=== PATIENT | male | born 1960 | race Caucasian/White ===

== ENCOUNTER → 2019-06-29 12:49 | Outpatient (CLI) | payer OTHER, MEDICAID, SELFPAY ==
--- NOTE | 2019-06-29 15:08 | DI.RAD.S_ITS ---
PROCEDURE: XR SHOULDER LT MIN 2V INDICATIONS: Injury to Left rotator cuff TECHNIQUE: 3 views of the shoulder were acquired. COMPARISON: None. FINDINGS: Bones: No fractures or dislocations. No suspicious bony lesions. Visualized ribs appear intact. Acromioclavicular and glenohumeral degenerative spurring and sclerosis. Soft tissues: No suspicious soft tissue calcifications. IMPRESSION: No fracture. If the patient's pain or other symptoms persist, consider further evaluation with MRI Dictated by: Miguel Portillo M.D. on 06/29/2019 at 16:04 Approved by: Miguel Portillo M.D. on 06/29/2019 at 16:06
== END ==
PROVIDERS: PCP Family Medicine; Visit Provider Family Medicine
DX: S46.002A Unspecified injury of muscle(s) and tendon(s) of the rotator cuff of left shoulder, initial encounter (principal); X58.XXXA Exposure to other specified factors, initial encounter
CPT/HCPCS: 73030

== ENCOUNTER → 2019-07-04 08:34 | Outpatient (CLI) | payer OTHER, MEDICAID, SELFPAY ==
--- NOTE | 2019-07-04 08:39 | DI.MRI.S_ITS ---
PROCEDURE: MR SHOULDER LT WO CON INDICATIONS: Injury of L rotator cuff TECHNIQUE: Noncontrast oblique coronal T2 fast spin echo with fat saturation, oblique sagittal T1 spin echo and T2 fast spin echo with fat saturation, axial T1 spin echo and T2 fast spin echo with fat saturation through the shoulder. COMPARISON: None. FINDINGS: Image quality: Excellent. Rotator cuff: The supraspinatus, infraspinatus , and subscapularis tendons appear intact throughout. Sagittal images demonstrate no muscle atrophy. Bones and bursae: No bone marrow contusions or fractures. 7 mm diameter high T2 intensity focus within the humeral head is present which demonstrates small internal low T2 intensity foci. There is moderate acromioclavicular joint degeneration. The acromion demonstrates conventional anatomy, without an os acromiale. No pathologic subacromial-subdeltoid or subcoracoid bursal fluid is present. Capsule and soft tissues: There is undercutting of the posterior superior glenoid labrum. The long head of the biceps tendon demonstrates normal location and morphology. The rotator interval appears normal, without fibrosis. The coracohumeral ligament is normal in thickness. IMPRESSION: 1. No rotator cuff tear. 2. Acromioclavicular joint osteoarthritis. 3. Glenoid labral tearing. 4. Low-grade cartilaginous lesion within the humeral head. Dictated by: Carmina Ordoñez M.D. on 07/06/2019 at 15:06 Approved by: Carmina Ordoñez M.D. on 07/06/2019 at 15:45
== END ==
PROVIDERS: PCP Family Medicine; Visit Provider Family Medicine
DX: S46.002A Unspecified injury of muscle(s) and tendon(s) of the rotator cuff of left shoulder, initial encounter (principal); S43.432A Superior glenoid labrum lesion of left shoulder, initial encounter; M19.012 Primary osteoarthritis, left shoulder; X58.XXXA Exposure to other specified factors, initial encounter
CPT/HCPCS: 73221

== ENCOUNTER 2023-03-27 16:10 | Emergency (ER) | payer OTHER, MEDICAID, SELFPAY ==
[2023-03-27 16:20] VITALS: BP 157/86; PULSE 80; RESP 16; TEMP 36.7; O2SAT 96; BMI 30.4
--- NOTE | 2023-03-27 16:36 | DI.CT.S_ITS ---
PROCEDURE: CT CHEST ABD PEL W CON INDICATIONS: trauma TECHNIQUE: After the administration of intravenous contrast, 5 mm thick sections acquired from the lung apices to the symphysis. 5 mm coronal and sagittal reformats were performed, with additional 7 mm MIP reformats through the lungs. For radiation dose reduction, the following was used: automated exposure control, adjustment of mA and/or kV according to patient size. COMPARISON: [facility], CT, ABDOMEN/PELVIS WITH CONTRAST, 02/08/2017, 8:29. FINDINGS: Image quality: Good Lungs and pleura: No pulmonary laceration or contusion identified. No hemothorax or pneumothorax. No significant airspace disease. Basal atelectasis. Tiny micro nodules/granulomas are present. Mediastinum, heart, and esophagus: No hiatal hernia. Heart size is within normal limits. No aortic abnormality on this non arteriographic study. No mediastinal hematoma. No pathologic lymph nodes by size criteria. Chest wall and thyroid: Thyroid is unremarkable. Chest wall is unremarkable. Solid organs: No evidence of liver laceration. Gallbladder is unremarkable. There is moderate fatty infiltration of the pancreas. No pathologic dilation of the biliary tree or pancreatic duct. No splenomegaly. No adrenal nodules. No hydronephrosis. No capsular hematoma or solid organ laceration. Vessels and lymph nodes: No evidence of abdominal aortic aneurysm or retroperitoneal hematoma. There are atherosclerotic calcifications. Minimal degree of fat stranding is seen surrounding the common iliac vessels of uncertain etiology. No drainable fluid collection. Bowel and peritoneum: No evidence of small bowel obstruction. No hemoperitoneum. No pathologic ascites. Body wall: Tiny umbilical and left inguinal fat containing hernias. Pelvis: Prostate is not well evaluated on CT. Bladder is unremarkable. Prosthetic enhancement is heterogeneous as before. Bones: No acute or suspicious osseous finding. There are degenerative changes. IMPRESSION: No significant traumatic abnormality identified. Other suspected nonacute and incidental findings described above. Dictated by: Jewel Mosley M.D. on 03/27/2023 at 17:17 Approved by: Jewel Mosley M.D. on 03/27/2023 at 17:24
[2023-03-27 17:01] LABS: Add Manual Diff / Slide Review NO; Basophils Absolute Auto 0 /uL (0-100); Basophils Percent Auto 0.3 % (0-2); Eosinophils Absolute Auto 200 /uL (0-450); Eosinophils Percent Auto 2.1 % (2-4); Hematocrit 43.8 % (41-53); Hemoglobin 15.4 g/dL (13.5-17.5); Lymphocytes Absolute Auto 1300 /uL (1100-4500); Lymphocytes Percent Auto 17.1 % (25-40); Mean Corpuscular HGB Conc 35.2 % (30-36); Mean Corpuscular Hemoglobin 31.6 PG (26-34); Mean Corpuscular Volume 89.8 fL (80-100); Monocytes Absolute Auto 600 /uL (0-900); Monocytes Percent Auto 7.5 % (3-14); Neutrophils Absolute Auto 5700 /uL (1500-7000); Platelet Count 256 X10^3/uL (150-400); Red Blood Cell Count 4.88 X10^6/uL (4.5-5.9); Red Cell Distribution Width 14.2 % (11.6-14.8); White Blood Cell Count 7.8 X10^3/uL (4.5-11.0)
[2023-03-27 17:16] LABS: Alanine Aminotransferase 24 IU/L (<50); Albumin 4.7 g/dL (3.5-5.0); Albumin Globulin Ratio 1.2 (1.0-2.8); Alkaline Phosphatase 64 U/L (38-126); Aspartate Aminotransferase 25 IU/L (17-59); BUN Creatinine Ratio 9.5 (6-22); Bilirubin Total 0.5 mg/dL (0.2-1.3); Blood Urea Nitrogen 12 mg/dL (9-20); Calcium 9.5 mg/dL (8.4-10.2); Carbon Dioxide 21 mmol/L (22-32); Chloride 108 mmol/L (98-107); Estimated Glomerular Filt Rate > 60 mL/min (>60); Globulin 3.9 g/dL (1.7-4.1); Glucose 109 mg/dL (80-110); HEMOLYSIS < 15 (0-50); Lipase 45 U/L (23-300); Potassium 3.7 mmol/L (3.4-5.1); Sodium 142 mmol/L (137-145); Total Protein 8.6 g/dL (6.3-8.2)
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
[2023-03-27 18:01] VITALS: BP 140/97; PULSE 70; RESP 16; O2SAT 99
== END 2023-03-27 18:10 | disposition home or self-care (01) ==
PROVIDERS: Nurse Practitioner Critical Care Medicine; Emergency Provider Emergency Medicine; PCP Family Medicine
DX: S30.1XXA Contusion of abdominal wall, initial encounter (principal); V89.2XXA Person injured in unspecified motor-vehicle accident, traffic, initial encounter
CPT/HCPCS: 36415; 71260; 74177; 80053; 83690; 85025; 99284; Q9967

== ENCOUNTER → 2023-12-18 11:59 | Outpatient (CLI) | payer OTHER, MEDICAID, SELFPAY ==
[2023-12-18 12:57] LABS: Hematocrit 44.2 % (41-53); Hemoglobin 15.4 g/dL (13.5-17.5); Mean Corpuscular HGB Conc 34.9 % (30-36); Mean Corpuscular Hemoglobin 32.1 PG (26-34); Mean Corpuscular Volume 91.9 fL (80-100); Platelet Count 255 X10^3/uL (150-400); Red Blood Cell Count 4.81 X10^6/uL (4.5-5.9); Red Cell Distribution Width 14.6 % (11.6-14.8)
[2023-12-18 14:23] LABS: Hemoglobin A1C% w Est Avg Glu 5.4 % (4.0-6.0)
[2023-12-18 16:09] LABS: Alanine Aminotransferase 13 IU/L (<50); Albumin 4.2 g/dL (3.5-5.0); Albumin Globulin Ratio 1.3 (1.0-2.8); Alkaline Phosphatase 60 U/L (38-126); Aspartate Aminotransferase 17 IU/L (17-59); BUN Creatinine Ratio 12.1 (6-22); Bilirubin Total 0.5 mg/dL (0.2-1.3); Blood Urea Nitrogen 14 mg/dL (9-20); Calcium 10.2 mg/dL (8.4-10.2); Carbon Dioxide 27 mmol/L (22-32); Chloride 107 mmol/L (98-107); Cholesterol 232 mg/dL (140-199); Estimated Glomerular Filt Rate > 60 mL/min (>60); Globulin 3.3 g/dL (1.7-4.1); Glucose 84 mg/dL (80-110); HDL Cholesterol 37 mg/dL (40-60); HEMOLYSIS < 15 (0-50); LDL Cholesterol Calculated 143 mg/dL (<100); Sodium 140 mmol/L (137-145); Total Protein 7.5 g/dL (6.3-8.2); Triglycerides 260 mg/dL (35-150)
[2023-12-18 16:20] LABS: Potassium 4.5 mmol/L (3.4-5.1)
== END ==
PROVIDERS: PCP Nurse Practitioner Family; Referring Provider Nurse Practitioner Family; Visit Provider Nurse Practitioner Family
DX: K59.00 Constipation, unspecified (principal); E66.9 Obesity, unspecified
CPT/HCPCS: 36415; 80053; 80061; 83036; 85027

== ENCOUNTER 2024-04-21 07:43 | Day surgery (SDC) | payer OTHER, MEDICAID, SELFPAY ==
[2024-04-21] VITALS (7 sets, daily range): BP systolic 101–121; BP diastolic 72–83; PULSE 69–78; RESP 14–24; TEMP 36.1–36.4; O2SAT 94–99
--- NOTE | 2024-04-21 | PATH_ITS ---
[facility] [place] Accession Number: [id number] No. of containers..03 Tissue . 01 Material submitted: . PART A: colon - CECAL MASS PART B: colon - PROXIMAL DESCENDING COLON POLYP PART C: rectum - RECTAL POLYP AT 20CM X2 . 01 Diagnosis: Part A: CECAL MASS: Tubulovillous adenoma. No high-grade dysplasia or malignancy identified. See comment. . Specimen Comments: The clinical impression of a mass is noted. While no malignancy is seen in the biopsy sample, correlation with the clinical appearance is recommended to ensure that the lesion is removed and to rule out the possibility of an unsampled higher grade lesion. . Part B: PROXIMAL DESCENDING COLON POLYP: Tubular adenoma. . Part C: RECTAL POLYP AT 20CM X2: Tubular adenoma. Hyperplastic polyp. [facility] 04/23/2024 1636 Local . 01 Electronically signed: . Tashi Sun MD, Pathologist NPI- [id number] . 01 Gross description: . A. Received in formalin with two patient identifiers and cecal mass, are multiple briggs soft tissue fragments, the largest two measuring 1.3 x 1.3 x 0.7 cm and 0.9 x 0.8 x 0.5 cm, inked blue and green, serially sectioned, and submitted in A1-A2. The remaining contents of the bottle were filtered and submitted in A3. . B. Received in formalin with two patient identifiers and proximal descending colon polyp, is a single briggs soft tissue fragment, 0.8 cm in greatest dimension. Submitted in B1. . C. Received in formalin with two patient identifiers and rectum polyp at 20 cm, is a briggs to brown soft tissue fragment, 1.0 x 0.8 x 0.6 cm, inked green, serially sectioned, and submitted in C1. ([id number]) /MRV 04/23/2024 1636 Local . 01 Pathologist provided ICD-10: D12.0, D12.4, D12.8 . 01 CPT . 091806, 037960, 271704 Specimen Comment: A courtesy copy of this report has been sent to [phone] Performed at: [address] [address], [place], [place] [id number] MD Tashi Sun MD Phone: [phone]
--- NOTE | 2024-04-21 | DI.RAD.S_ITS ---
PROCEDURE: XR KUB INDICATIONS: abdominal pain post colonoscopy TECHNIQUE: One view of the abdomen acquired. COMPARISON: None. FINDINGS: Surgical changes and devices: None. Bowel: Bowel gas pattern is nonobstructive with moderate amount of gas in the ascending and transvers. Paucity of bowel gas in the left hemiabdomen and pelvis. No radiographic evidence of pneumoperitoneum. Soft tissues: No suspicious abdominal calcifications. Visualized solid organ contours appear normal in size. Bones: No suspicious bony lesions. IMPRESSION: 1. Nonobstructive bowel gas pattern with moderate amount of gas in the ascending and transverse colon. Paucity of bowel gas in the left hemiabdomen and pelvis. 2. No radiographic evidence of pneumoperitoneum. Dictated by: Mathieu Orozco M.D. on 04/21/2024 at 10:15 Approved by: Mathieu Orozco M.D. on 04/21/2024 at 10:17
[2024-04-21] MEDS: LACTATED RINGERS 1,000 ML 42 ML IV (07:53)
--- NOTE | 2024-04-21 08:47 | P.HP_ITS ---
History of Present Illness History of Present Illness Date Patient Seen: 04/21/24 Time Patient Seen: 08:47 Chief complaint: Screening Colonoscopy Narrative: Colon cancer screening. H/o constipation. This is his first scope. ON LICENSE OF [facility] Medical History Measles (~1969) Chicken pox (~1967) Kidney stone (~2015) BMI 31.0-31.9,adult Tear of left glenoid labrum (04/2019) Surgical History Anesthesia History of lithotripsy (~2015) History of oral surgery Status post appendectomy (~1962) Family History Father Cancer Diabetes mellitus Mental health problem Mother History of heart disease Grandfather Hemophilia Grandmother Cancer Mental health problem Social History Smoking Status: Former smoker alcohol intake: never Meds Home Medications and Allergies Allergies Allergy/AdvReac Type Severity Reaction Status Date / Time chocolate flavor Allergy Severe HANDS Verified 04/21/24 07:57 [CHOCOLATE FLAVOR] SWELL, breathing gets bad tetracycline [TETRACYCLINE] Allergy Intermediate SWELLING Verified 04/21/24 07:57 cat dander Allergy Mild eyes Verified 04/21/24 07:57 water, nose drainage Review of Systems Review of Systems ROS: Yes All systems reviewed with the patient and are negative except as otherwise documented Exam Vital Signs (past 8 hours): - 04/21/24 08:12 Temperature 96.9 F L Pulse Rate 76 Respiratory Rate 17 Blood Pressure 121/83 Pulse Oximetry 96 Oxygen Delivery Method Room Air Oxygen Delivery Method Room Air Const General: cooperative, healthy appearing and comfortable Nutritional Appearance: average body habitus HENMT Head: normocephalic and atraumatic Eyes Periorbital: periorbital findings normal Neck Neck: trachea midline Resp Effort & Inspection: normal respiratory effort and able to speak in complete sentences Cardio Rate: regular rate Rhythm: regular rhythm GI Palpation: soft and No tender Skin General: elasticity normal and turgor normal Neuro General: patient alert, patient awake and patient oriented x3 Cognition: normal cognition Psych Mental Status: mental status grossly normal Affect: normal affect Judgment: judgment good Assessment & Plan Assessment & Plan narrative: colon cancer screening Colonoscopy with anesthesia Time-Based Coding :: [TOTAL MINUTES] spent with patient and on the chart (including review of chart, obtaining history, exam, reviewing outside data, placing orders, documenting exam and treatment plan, and counseling patient) on [DATE].
--- NOTE | 2024-04-21 09:28 | PM.OP.COLON ---
Operative Date/Time/Diagnoses Date of procedure: 04/21/24 Time of procedure: 09:28 Pre-op diagnosis: Colon cancer screening Post-op diagnosis: same Procedure & Clinicians Study performed: Colonoscopy with hot snare polypectomy x4 Same procedure as scheduled: Yes Indications: Colon cancer screening Surgeon: Lilly Kohler Procedure Notes Procedure in detail: Preop diagnosis: Colon cancer screening Postop diagnosis: Same Operative procedure: Colonoscopy with hot snare polypectomy x4 Surgeon: Juliane Kohler MD Anesthetic: Per anesthesia Findings: Flat sessile polyp at cecal valve. 3.5 cm, proximal descending colon polyp on stalk(completely excised) 0.8 cm, sessile polyp 0.3 cm along with a 1.5 cm polyp on a stalk at 20 cm rectum. Cautery was used in the area of the 2 polyps to assure complete polypectomy. Procedure: Patient placed in lateral position. Rectal exam performed showing normal tone no masses. Colonoscope inserted into the rectum advanced to ileocecal valve with minimal difficulty. Insufflation extraction scope including retroflex had the above findings. Impression: For polyps. Most concerning polyp is at the cecum 3.5 cm and sessile. Piecemeal and then cauterized in an attempt to obliterate. Second polyp proximal descending colon. Polyps 3 and 4 at 20 cm in the rectum. Plan: Repeat colonoscopy 3 months if pathology does not show hyperplasia or cancer. This is to review the cecal area. May ultimately need a right colectomy Findings: polyp(s) (See findings) Specimen(s): other (See findings) Complications: none Post-procedure Recommendations: Other recommendation(s) (Await pathology results) Follow up: as needed Disposition: PACU
[2024-04-21] MEDS: fentaNYL 100 MCG/2 ML INJ 50 MCG IV (09:57)
--- NOTE | 2024-04-21 10:16 | SUR.PHASEII ---
Patient resting with no c/o abdominal pain at this time and states that he feels better. Waiting for results of KUB.
== END 2024-04-21 10:37 | disposition home or self-care (01) ==
PROVIDERS: PCP Nurse Practitioner Family; Referring Provider Surgery; Visit Provider Surgery
PROC: 0DJD8ZZ Inspection of Lower Intestinal Tract, Via Natural or Artificial Opening Endoscopic (ICD-10-PCS; CPT 45378; principal; 2024-04-21 08:45)
DX: Z12.11 Encounter for screening for malignant neoplasm of colon (principal); D12.0 Benign neoplasm of cecum; D12.4 Benign neoplasm of descending colon; D12.8 Benign neoplasm of rectum
CPT/HCPCS: 45385; 74018; J2704; J3010

== ENCOUNTER → 2024-06-04 11:21 | Outpatient (CLI) | payer OTHER, MEDICAID, SELFPAY ==
--- NOTE | 2024-06-04 11:22 | DI.RAD.S_ITS ---
PROCEDURE: XR LUMBAR SPINE 3V INDICATIONS: low back pain TECHNIQUE: 3 views of the lumbar spine were acquired. COMPARISON: None. FINDINGS: [id number]-zf-[id number] degenerative changes throughout the lower thoracic, lumbar spine with disc space narrowing, osteophytes, osseous facet hypertrophic changes most notably at L4-5, L5-S1. Lumbar vertebral body heights within normal limits without radiographic evidence of compression fracture. Minimal levoscoliosis on the frontal image some of which may be artifact from positioning. Mild degenerative changes bilateral hips with small osteophytes. 5 [id number]-[id number] vertebrae are present. IMPRESSION: Flcs-lk-skwufwta degenerative changes most notably at L4-5, L5-S1. Dictated by: Zafar Calderon M.D. on 06/04/2024 at 14:51 Approved by: Zafar Calderon M.D. on 06/04/2024 at 14:59
== END ==
PROVIDERS: PCP Nurse Practitioner Family; Referring Provider Nurse Practitioner Family; Visit Provider Nurse Practitioner Family
DX: M47.816 Spondylosis without myelopathy or radiculopathy, lumbar region (principal); M47.817 Spondylosis without myelopathy or radiculopathy, lumbosacral region; M54.50 Low back pain, unspecified
CPT/HCPCS: 72100

== ENCOUNTER 2024-08-14 11:51 | Day surgery (SDC) | payer OTHER, MEDICAID, SELFPAY ==
--- NOTE | 2024-08-14 | PATH_ITS ---
[facility] Accession Number: [id number] No. of containers..03 Tissue . 01 Material submitted: . PART A: colon - CECUM POLYP PART B: colon - ASCENDING COLON POLYP PART C: colon - SIGMOID COLON . 01 Diagnosis: Part A: CECUM POLYP: Tubular adenoma. . Part B: ASCENDING COLON POLYP: Tubular adenoma. . Part C: SIGMOID COLON: Tubular adenoma. Hyperplastic polyp. [facility] 08/19/2024 1414 Local . 01 Electronically signed: . Tashi Sun MD, Pathologist NPI- [id number] . 01 Gross description: . A. Received in formalin with two patient identifiers and cecum polyp, is a single briggs soft tissue fragment 0.7 cm in greatest dimension. Submitted in cassette A1. . B. Received in formalin with two patient identifiers and ascending colon polyp, are multiple briggs soft tissue fragments aggregating to 2.2 x 1.2 x 0.4 cm. Filtered and submitted in cassette B1. . C. Received in formalin with two patient identifiers and sigmoid polyp, are three briggs soft tissue fragments 0.4 to 0.7 cm in greatest dimension. Submitted in cassette C1. ([id number]) /ROMY 08/19/20241413 Local . 01 Pathologist provided ICD-10: D12.0, D12.2, D12.5 . 01 CPT . 832163, 550391, 503139 Specimen Comment: A courtesy copy of this report has been sent to [facility] Performed at: [address] [address], [place], [place] [id number] MD Tashi Sun MD Phone: [phone]
[2024-08-14 12:06] VITALS: BP 139/92; PULSE 94; RESP 12; TEMP 36.5; O2SAT 92
--- NOTE | 2024-08-14 12:08 | P.HP_ITS ---
History of Present Illness History of Present Illness Date Patient Seen: 08/14/24 Time Patient Seen: 12:08 Chief complaint: Screening Colonoscopy Narrative: 64-year-old white male presents in short-term follow-up following a piecemeal polypectomy of a tubulovillous adenoma of the cecum in March. Pathology did not show anything suspicious for cancer that time. His health has not changed since March. [facility] Medical History Tubular adenoma Low back pain Measles (~1969) Chicken pox (~1967) Kidney stone (~2015) BMI 31.0-31.9,adult Tear of left glenoid labrum (04/2019) Surgical History Anesthesia History of lithotripsy (~2015) History of oral surgery Status post appendectomy (~1962) Family History Father Cancer Diabetes mellitus Mental health problem Mother History of heart disease Grandfather Hemophilia Grandmother Cancer Mental health problem Social History Smoking Status: Former smoker alcohol intake: never Meds Home Medications and Allergies Home Medications Medication Instructions Recorded Confirmed Type peg 3350-electrolytes 236 240 ml PO Q10M #4,000 mL 07/29/24 Rx gram-22.74 gram-6.74 gram-5.86 gram solution (Golytely) Allergies Allergy/AdvReac Type Severity Reaction Status Date / Time chocolate flavor Allergy Severe HANDS Verified 07/22/24 08:12 [CHOCOLATE FLAVOR] SWELL, breathing gets bad tetracycline [TETRACYCLINE] Allergy Intermediate SWELLING Verified 07/22/24 08:12 cat dander Allergy Mild eyes Verified 07/22/24 08:12 water, nose drainage Review of Systems Review of Systems ROS: Yes All systems reviewed with the patient and are negative except as otherwise documented Constitutional Constitutional: Reports system reviewed and no additional complaints, except as documented Eyes Eyes: Reports system reviewed and no additional complaints, except as documented ENT Ears, Nose, Mouth, and Throat: Yes system reviewed and no additional complaints, except as documented Cardiovascular Cardiovascular: Reports system reviewed and no additional complaints, except as documented Respiratory Respiratory: Reports system reviewed and no additional complaints, except as documented Gastrointestinal Gastrointestinal: Reports system reviewed and no additional complaints, except as documented Genitourinary Genitourinary: Reports system reviewed and no additional complaints, except as documented Musculoskeletal Musculoskeletal: Reports system reviewed and no additional complaints, except as documented Integumentary/Breasts Skin/Breast: Reports system reviewed and no additional complaints, except as documented Neurologic Neurologic: Reports system reviewed and no additional complaints, except as documented Psychiatric Psychiatric: Reports system reviewed and no additional complaints, except as documented Endocrine Endocrine: Reports system reviewed and no additional complaints, except as documented Hematologic/Lymphatic Hematologic/Lymphatic: Reports system reviewed and no additional complaints, except as documented Allergic/Immunologic Allergic/Immunologic: Reports system reviewed and no additional complaints, except as documented Exam Narrative Exam Narrative: Gen: NAD, sitting comfortably in bed, appears well HEENT: Sclera are anicteric, head is normocephalic and atraumatic, trachea is midline. CV: RRR, no JVD Resp: clear to auscultation bilaterally, equal chest wall movement bilaterally Abd: soft, nontender, normoactive bowel sounds Ext: no edema, full range of motion Neuro: Cranial nerves II-XII grossly intact, no focal deficits Skin: No erythema or ecchymosis Assessment & Plan Assessment and plan (1) Tubular adenoma: Status: Acute Assessment & Plan narrative: Patient presents for initial screening colonoscopy Risks, benefits, alternatives to colonoscopy explained, including but not limited to bowel perforation or other serious complication requiring surgery at less than 1 in 5000 colonoscopies, abdominal pain, cramping or bleeding and less than 1% of colonoscopies, and the chances that we find a diagnosis that would require further intervention of about 2%. Patient agrees to proceed. Time-Based Coding :: [TOTAL MINUTES] spent with patient and on the chart (including review of chart, obtaining history, exam, reviewing outside data, placing orders, documenting exam and treatment plan, and counseling patient) on [DATE].
--- NOTE | 2024-08-14 12:53 | P.OP.COLON_ITS ---
Operative Date/Time/Diagnoses Date of procedure: 08/14/24 Time of procedure: 12:53 Pre-op diagnosis: cecal polyp, prior piecemeal resection Post-op diagnosis: same (recurrent sessile polyp of the ascending colon, 2 cm proximal and opposite to the ICV, over 3 cm in size) Procedure & Clinicians Study performed: 1. Colonoscopy with endoscopic mucosal resection of ascending colon polyp about 3 cm in size 2.Colonoscopy with cold snare polypectomy of cecal polyp and sigmoid polyp 3. Injection of tattoo ink, carbon black 2 cm away from the endoscopic mucosal resection of the polyp proximally, laterally and medially Same procedure as scheduled: Yes Indications: In March he underwent piecemeal resection of a tubulovillous adenoma labeled as cecum Surgeon: Niels Eagle Procedure Notes SCOAP/Timeout: performed Procedure in detail: Time-out was performed. Mac was induced. Patient was placed in left lateral decubitus position. The perineum was inspected without any gross abnormality. Lubricated pediatric colonoscope was inserted and advanced to the cecum. The terminal ileum was intubated. The colonoscope was withdrawn slowly inspecting the circumference of the colon. There was a small polyp in the cecum near the appendiceal orifice, less than 10 mm in size that was excised with cold snare polypectomy. There was a larger carpet like polyp in the ascending colon just proximal to an opposite from the ileocecal valve proximally 3 cm in length comprising 25% circumference of the ascending colon and about 1 cm in thickness. Cold snare piecemeal endoscopic mucosal resection was performed. 2 cm away fro m the margin proximally 1 mL of carbon black was placed. 1 mL of carbon black was injected opposite to the lesion. 1 mL of carbon black was placed proximal and medial to the lesion. A small sessile, likely hyperplastic polyp of the rectosigmoid junction was excised with cold snare. Very small polyps may have been missed, prep quality was adequate. Retroflexed view of the rectum showed small, non prolapsed nonbleeding internal hemorrhoids. The scope was withdrawn the patient was taken to PACU in good condition. Scope withdrawal time: 15 Sedation minutes: 20 Findings: polyp(s) Specimen(s): other (1. cecal polyp 2. ascending colon polyp, EMR 3. sigmoid polyp) Complications: none Impression: Large recurrent polyp. Pathology will need to be reviewed prior to making any determination of next steps. If benign, we will need to continue on every 6 months colonoscopy or may opt for laparoscopic right hemicolectomy. If malignant or indeterminate, should undergo laparoscopic right hemicolectomy. Post-procedure Recommendations: Colonoscopy in 1 year (in 6 months for surveillance of ascending colon polyp, carbon black in placed 2 cm away from the resection site) Follow up: months (6) Disposition: PACU
[2024-08-14 12:58] VITALS: BP 105/69; PULSE 83; RESP 12; TEMP 36.6; O2SAT 93
[2024-08-14 13:02] VITALS: BP 103/77; PULSE 85; RESP 14; O2SAT 97
[2024-08-14 13:06] VITALS: BP 105/66; PULSE 83; RESP 12; O2SAT 94
[2024-08-14 13:07] VITALS: BP 104/65; PULSE 79; RESP 14; O2SAT 93
== END 2024-08-14 13:30 | disposition home or self-care (01) ==
PROVIDERS: Surgery; PCP Nurse Practitioner Family; Referring Provider Surgery; Visit Provider Surgery
PROC: 0DJD8ZZ Inspection of Lower Intestinal Tract, Via Natural or Artificial Opening Endoscopic (ICD-10-PCS; CPT 45378; principal; 2024-08-14 13:45)
DX: D12.0 Benign neoplasm of cecum (principal); K63.5 Polyp of colon; D12.2 Benign neoplasm of ascending colon; D12.5 Benign neoplasm of sigmoid colon
CPT/HCPCS: 45390; 45381; 45385; J2704

== ENCOUNTER 2025-03-04 08:32 | Day surgery (SDC) | payer OTHER, SELFPAY ==
--- NOTE | 2025-03-04 | PATH_ITS ---
[facility] Accession Number: [id number] No. of containers..03 Tissue . 01 Material submitted: . PART A: colon - CECAL POLYP PART B: colon - COLON,ASCENDING POLYP PART C: colon - COLON,TRANSVERSE POLYP . 01 Diagnosis: A. CECAL POLYP: Tubulovillous adenoma. No high-grade dysplasia or malignancy. . B. ASCENDING COLON POLYP: Tubular adenoma. . C. TRANSVERSE COLON POLYP: Tubular adenoma. MRV 03/10/2025 1716 Local . 01 Electronically signed: . Yulia Armando MD, Pathologist NPI- [id number] . 01 Gross description: . A. Received in formalin with two identifiers and cecal polyp, are multiple briggs soft tissue fragments aggregating to 2.1 x 0.9 x 0.2 cm. Filtered and submitted entirely in cassette A1. B. Received in formalin with two identifiers and ascending colon polyp, is a single briggs soft tissue fragment 0.6 cm in greatest dimension. Submitted in cassette B1. C. Received in formalin with two identifiers and transverse colon polyp, are multiple briggs soft tissue fragments aggregating to 0.7 x 0.6 x 0.2 cm. Filtered and submitted entirely in cassette C1. ([id number]) /ROMY 03/06/2025 2307 Local . 01 Pathologist provided ICD-10: D12.0, D12.2, D12.3 . 01 CPT . 632981, 866090, 122850 Specimen Comment: A courtesy copy of this report has been sent to [phone] Performed at: [address] [facility], [place], [place] [id number] MD Tashi Sun MD Phone: [phone]
[2025-03-04 09:52] VITALS: BP 155/91; PULSE 65; RESP 17; TEMP 36.1; O2SAT 99
[2025-03-04] MEDS: LACTATED RINGERS 1,000 ML 42 ML IV (09:58)
--- NOTE | 2025-03-04 11:04 | P.HP_ITS ---
History of Present Illness History of Present Illness Date Patient Seen: 03/04/25 Time Patient Seen: 11:04 Chief complaint: Dx Colonoscopy w/poss bx Narrative: Madeline is a 64-year-old man had a colonoscopy with Dr. Eagle last July. Dr. Eagle removed a 3 cm polyp near the ileocecal valve. Path showed a tubular adenoma. [facility] Medical History (Updated 11/04/24 @ 10:08 by Keiko Guthrie, [facility]-) Chronic sinusitis Tubular adenoma Low back pain Measles (~1969) Chicken pox (~1967) Kidney stone (~2015) BMI 31.0-31.9,adult Tear of left glenoid labrum (04/2019) Surgical History Anesthesia History of lithotripsy (~2015) History of oral surgery Status post appendectomy (~1962) Family History Father Cancer Diabetes mellitus Mental health problem Mother History of heart disease Grandfather Hemophilia Grandmother Cancer Mental health problem Social History Smoking Status: Former smoker alcohol intake: current Meds Home Medications and Allergies Home Medications ?Medication ?Instructions ?Recorded ?Confirmed ?Type fluticasone propionate 50 2 spray intranasal DAILY PRN nasal 11/04/24 03/04/25 Rx mcg/actuation nasal congestion #16 grams spray,suspension famotidine-Ca carb-mag hydrox 10 1 tab PO DAILY PRN ac id reflux 03/04/25 03/04/25 History mg-800 mg-165 mg chewable tablet (Pepcid Complete) Allergies Allergy/AdvReac Type Severity Reaction Status Date / Time chocolate flavor (CHOCOLATE Allergy Severe HANDS Verified 03/04/25 09:43 FLAVOR) SWELL, breathing gets bad tetracycline (TETRACYCLINE) Allergy Intermediate SWELLING Verified 03/04/25 09:43 cat dander Allergy Mild eyes Verified 03/04/25 09:43 water, nose drainage Exam Vital Signs (past 8 hours): - 03/04/25 09:52 Temperature 97.0 F L Pulse Rate 65 Respiratory Rate 17 Blood Pressure 155/91 H Pulse Oximetry 99 Oxygen Delivery Method Room Air Oxygen Delivery Method Room Air Const General: No acute distress Assessment & Plan Assessment and plan (1) Tubular adenoma: Status: Acute Plan Colonoscopy Time-Based Coding :: [TOTAL MINUTES] spent with patient and on the chart (including review of chart, obtaining history, exam, reviewing outside data, placing orders, documenting exam and treatment plan, and counseling patient) on [DATE]. [employer] Document charge(s): No
--- NOTE | 2025-03-04 11:40 | PM.OP.COLON ---
Operative Date/Time/Diagnoses Date of procedure: 03/04/25 Time of procedure: 11:40 Pre-op diagnosis: History of polyps Post-op diagnosis: same Procedure & Clinicians Study performed: Colonoscopy Same procedure as scheduled: Yes Surgeon: Connor Ortega Procedure Notes Procedure in detail: Surgeon: Connor Ortega MD Anesthesia: Darren Miller AERONAUTICAL DESIGN ENGINEER Procedure: The patient was brought to the endoscopy suite, placed in left lateral decubitus position. The patient was connected to monitoring devices. A time-out was performed. Sedation was administered. Once the patient was adequately sedated, a digital rectal exam was performed and was normal. The scope was then inserted and advanced to the cecum where the appendiceal orifice was identified and photographed. The scope was then slowly withdrawn over greater than 6 minutes. The mucosa was thoroughly inspected. There was 2 cm linear sessile polyp cecum along the proximal aspect tattoo ink. It was removed in multiple passes using a cold snare. There was a 5 mm polyp in the ascending colon removed with a cold snare. There were two 5 mm polyps in the transverse colon removed with cold snare sent together. The scope was retroflexed in the rectum. No other abnormalities were found. The scope was straightened and removed. The patient was awakened and brought to recovery. Scope withdrawal time: 10 minutes Sedation time: 23 minutes EBL: 5 mL Findings: Multiple polyps as described above including a polyp the edge tattoo ink in the cecum Post-procedure Disposition: PACU
[2025-03-04 11:45] VITALS: BP 106/76; PULSE 69; RESP 16; TEMP 36.2; O2SAT 99
[2025-03-04 11:50] VITALS: BP 106/70; PULSE 70; RESP 16; O2SAT 98
[2025-03-04 11:55] VITALS: BP 108/76; PULSE 70; RESP 16; TEMP 36.2; O2SAT 98
== END 2025-03-04 12:22 | disposition home or self-care (01) ==
PROVIDERS: PCP Nurse Practitioner Family; Referring Provider Surgery; Visit Provider Surgery
PROC: 0DJD8ZZ Inspection of Lower Intestinal Tract, Via Natural or Artificial Opening Endoscopic (ICD-10-PCS; CPT 45378; principal; 2025-03-04 10:00)
DX: Z12.11 Encounter for screening for malignant neoplasm of colon (principal); Z86.0101 Personal history of adenomatous and serrated colon polyps; D12.0 Benign neoplasm of cecum; D12.2 Benign neoplasm of ascending colon; D12.3 Benign neoplasm of transverse colon
CPT/HCPCS: 45385; J2704